=== PATIENT | female | born 1985 | race Caucasian/White ===

== ENCOUNTER 2017-04-09 12:00 | Emergency (ER) | payer MEDICAID, OTHER ==
--- NOTE | 2017-04-09 13:08 | EDPHY ---
H & P Smoking Status: Current every day smoker Time Seen by Provider: 04/09/17 12:16 HPI/ROS: CHIEF COMPLAINT: , abdominal pain, palpitations HISTORY OF PRESENT ILLNESS: 32-year-old female presents to the emergency department by private vehicle complaining of palpitations and fatigue. The patient is . She thinks her last menstrual period was mid December. She has not had any care. She has been taking vitamins however. She has a known history of iron deficiency anemia. She states that the fatigue has been extreme. She has no pain in her chest. She does not feel like she is having difficulty breathing. She feels like she can "feel her heartbeat in her ears when she stands up." No headache. No neck pain. She was having some discomfort in her right lower quadrant of her abdomen. No vaginal bleeding or spotting. No diarrhea. She denies dysuria or urgency with urination. REVIEW OF SYSTEMS: Constitutional: No fever, no chills. Eyes: No double or blurry vision. ENT: No sore throat. Respiratory: No cough, no shortness of breath. Cardiac: No chest pain. Gastrointestinal: As above. No vomiting or diarrhea Genitourinary: No dysuria. Musculoskeletal: No neck or back pain. Skin: No rashes. Neurological: No headache. (BrittneyAlyssa mortensen) Past Medical/Surgical History: 4 para 2 AB1 (Alyssa Avila) Social History: (Alyssa Avila) Physical Exam: General Appearance: Alert, no distress. Vital signs are stable. Eyes: Pupils equal and round. Extraocular motions are all intact. ENT: Mouth: Mucous membranes moist. Respiratory: No wheezing, rhonchi, or rales, lungs are clear to auscultation. Cardiovascular: Regular rate and rhythm. No carotid bruit. Gastrointestinal: Abdomen is soft and nontender, no masses, no rebound or guarding, bowel sounds normal. No CVA tenderness bilaterally. Neurological: Alert and oriented x 3, cranial nerves II through XII grossly intact Skin: Warm and dry, no rashes. Musculoskeletal: Nontender to palpate along the cervical, thoracic or lumbar spine. Neck is supple. Extremities: Full range of motion and no peripheral edema. Psychiatric: Patient is oriented X 3, there is no agitation. (BrittneyAlyssa mortensen) Constitutional: Initial Vital Signs Temperature (C) 36.7 C 04/09/17 12:14 Heart Rate 82 04/09/17 12:14 Respiratory Rate 20 04/09/17 12:14 Blood Pressure 122/75 H 04/09/17 12:14 O2 Sat (%) 99 04/09/17 12:14 O2 Delivery Mode Room Air Allergies/Adverse Reactions: No Known Allergies Allergy (Unverified 04/09/17 12:18) Home Medications: Medication Instructions Recorded NK [No Known Home Meds] 04/09/17 Medical Decision Making - Diagnostics Imaging: Discussed imaging studies w/ will call order clerk Radiologist ED Course/Re-evaluation: 32-year-old female presents to the emergency department feeling very fatigued. She believes her last menstrual period was in December. Pelvic ultrasound reveals single living IUP measuring 10 week 5 day with no evidence of free fluid or subchorionic hemorrhage. Laboratory studies reveal hemoglobin of 9.7 and hematocrit of 30.7%. Patient has a history of iron-deficiency anemia. She has no vaginal bleeding. I encouraged close follow-up with her primary care provider as well as OBGYN. I did encourage her to continue vitamins with iron. She felt comfortable being discharged home. (Alyssa Avila) I did not see this patient while she was in the emergency department. However her care was discussed with the PA while the patient was in the department. I agree with treatment plan and management (Randall Gudino) Differential Diagnosis: Including but not limited to intrauterine , ectopic , electrolyte abnormality, depression, anxiety, CVA, spinal cord abnormality, and infectious causes. (Alyssa Avila) - Data Points Laboratory Results: Laboratory Results 04/09/17 12:15 04/09/17 12:15 Departure - Departure Disposition: Home, Routine, Self-Care Clinical Impression: Intrauterine , Fatigue, Iron deficiency anemia Condition: Good Instructions: (ED), Iron Deficiency Anemia (ED), Fatigue (ED) Additional Instructions: Continue to take your vitamins with iron as prescribed. Follow-up with OBGYN this week as directed. Return to the emergency department if you developed vaginal bleeding, increasing pain or any other concerns. Referrals: Armida Gillespie MD [Medical Doctor] - 2-3 days without fail (OBGYN on-call)
--- NOTE | 2017-04-09 13:14 | CPEKG ---
Heart Rate: 72 RR Interval: 833 P-R Interval: 144 QRSD Interval: 88 QT Interval: 396 QTC Interval: 434 P [place]: 80 QRS [place]: 28 T Wave [place]: 22 EKG Severity - NORMAL ECG - EKG Impression: SINUS RHYTHM Electronically Signed By: Randall Gudino 09-Apr-2017 15:16:07
[2017-04-09 13:15] LABS: % IMMATURE GRANULYOCYTES 0.3 % (0.0-1.1); ABSOLUTE IMMATURE GRANULOCYTES 0.04 10^3/uL (0.00-0.10); ADD DIFF? NO; ADD MORPH? NO; ADD SCAN? NO; ATYPICAL LYMPHOCYTE FLAG 0 (0-99); FRAGMENT RBC FLAG 20 (0-99); HEMATOCRIT 30.7 % (38.0-47.0); HEMOGLOBIN 9.7 g/dL (12.6-16.3); LEFT SHIFT FLG 0 (0-99); LIPEMIA HEMOLYSIS FLAG 80 (0-99); MEAN CELL HEMOGLOBIN 23.6 pg (27.9-34.1); MEAN CELL HEMOGLOBIN CONCENTR. 31.6 g/dL (32.4-36.7); MEAN CELL VOLUME 74.7 fL (81.5-99.8); MEAN PLATELET VOLUME 11.3 fL (8.7-11.7); PLATELET CLUMPS FLAG 0 (0-99); PLATELET COUNT 292 10^3/uL (150-400); RED BLOOD CELL COUNT 4.11 10^6/uL (4.18-5.33); RED CELL DISTRIBUTION WIDTH 16.6 % (11.5-15.2)
[2017-04-09 13:16] LABS: ANION GAP 11 mEq/L (8-16); CALCIUM 9.2 mg/dL (8.5-10.4); CARBON DIOXIDE 20 mEq/l (22-31); CHLORIDE 104 mEq/L (97-110); CREATININE 0.5 mg/dL (0.6-1.0); GLOMERULAR FILTRATION RATE > 60; GLUCOSE 82 mg/dL (70-100); POTASSIUM 4.2 mEq/L (3.5-5.2); SODIUM 135 mEq/L (134-144)
[2017-04-09 15:14] VITALS: RESP 18
[2017-04-09 16:46] VITALS: BP 108/60; PULSE 76; TEMP 98.6; O2SAT 96
== END 2017-04-09 16:46 | disposition home or self-care (01) ==
DX: O26.811 Pregnancy related exhaustion and fatigue, first trimester (principal); O99.011 Anemia complicating pregnancy, first trimester; D50.9 Iron deficiency anemia, unspecified; F17.200 Nicotine dependence, unspecified, uncomplicated; Z3A.11 11 weeks gestation of pregnancy